=== PATIENT | male | born 1940 | race Caucasian/White ===

== ENCOUNTER 2016-10-05 07:28 | Day surgery (SDC) | payer MEDICARE, OTHER ==
[~2016-10-05] VITALS: Ht 182.9 cm; Wt 108.9 kg
[~2016-10-05 07:28] MED LIST: DULO60CA42 PO; EMPA25TA PO; INSU100I; INSU300I SQ; LISI10TA PO; METF500T PO; OMEP20CA11 PO; Sodium Chloride LOK Flush 10 mL Syringe IV PRN; TAMS0.4C98 PO; VIT1CAPS8 PO; fentaNYL-PF 50 mCg/mL 2 mL Inj IVPUSH PRN
[2016-10-05 07:46] VITALS: BP 150/74; PULSE 87; RESP 16; O2SAT 92
[2016-10-05] MEDS: 0.9% Sodium Chloride 1,000 ML IV SCH ×2 (08:24→08:58)
[2016-10-05 09:00] VITALS: BP 154/77; PULSE 72; RESP 16; O2SAT 95
[2016-10-05 09:10] VITALS: BP 151/78; PULSE 74; RESP 16; O2SAT 95
[2016-10-05 09:19] VITALS: BP 152/75; PULSE 74; RESP 16; O2SAT 94
--- NOTE | 2016-10-05 15:38 | ENDO ---
[address] [address] ENDOSCOPY PROCEDURE PATIENT: LELE MORAN : 1940 MR#: [id number] ADMIT: 10/05/2016 JOB ID: [id number] PROCEDURE: Colonoscopy. INDICATION: Patient with personal history of colon polyps. Patient's ASA classification is II. Mallampati score is II. MEDICATIONS: Versed 2 mg, fentanyl 50 mcg. INSTRUMENT USED: [id number]. PREPARATION QUALITY: Fair. PROCEDURE DETAILS: After informed consent was obtained, the patient was brought into the GI suite, where he was placed on oxygen via nasal cannula and monitored with continuous pulse oximeter, telemetry, and blood pressure monitoring. A time-out was performed. Then, he was placed in a left lateral decubitus position and medications were administered for sedation. Digital rectal exam was performed which was unremarkable. The colonoscope was then inserted into the rectum and advanced under visualization to the cecum, which was identified by the presence of the ileocecal valve and appendiceal orifice. Once cecum was reached, colonoscope was withdrawn back into the rectum. Mucosa and lumen were examined. In the rectum, retroflexion was performed. Following retroflexion, remaining air in the rectum was suctioned, and procedure was completed. FINDINGS: 1. In the ascending colon, there were two polyps that ranged in size from 6 mm to 7 mm. Both polyps were removed using a hot snare. 2. In the transverse colon, there was an approximately 6 mm polyp that was removed with a hot snare. 3. In the sigmoid colon, there was a 5 mm sessile polyp that was removed with a hot snare. 4. Scattered diverticula were seen throughout the left side of the colon. 5. Retroflexed views in the rectum revealed moderate-sized internal hemorrhoids. IMPRESSION: 1. Two ascending colon polyps. 2. Transverse colon polyp. 3. Sigmoid polyp. 4. Left-sided diverticulosis. 5. Internal hemorrhoids. RECOMMENDATIONS: 1. Avoid NSAIDs and anticoagulants for 72 hours. 2. Fiber rich diet. 3. Repeat colonoscopy in three years. 4. Follow up with Dr. Alexandria Valerio at [facility] for followup of history of pancreatic duct stricture. COMPLICATIONS: None. ESTIMATED BLOOD LOSS: Zero.
--- NOTE | 2016-10-08 16:14 | PATH ---
SURGICAL PATHOLOGY Attending Physician:Balwinder Reed CASE STATUS: Signed Out PATIENT NAME: LELE MORAN PID: [id number] : 1940 DATE COLLECTED:10/05/2016 17:36 SPECIMEN: 1: Colon, Biopsy 2: Colon, Biopsy 3: Colon, Biopsy CLINICAL HISTORY: 1). ASCENDING COLON POLYP X2 2). TRANSVERSE COLON POLYP 3). SIGMOID POLYP FINAL DIAGNOSIS: 1.ASCENDING COLON, POLYP, BIOPSIES: TUBULAR ADENOMAS. 2.TRANSVERSE COLON, POLYP, BIOPSY: TUBULAR ADENOMA. 3.SIGMOID COLON, POLYP, BIOPSY: TUBULAR ADENOMA. ICD10 CODE D12.2 D12.3 D12.5 GROSS DESCRIPTION: Received are three formalin-filled containers, each labeled with the patient' s name. 1. Received in formalin, labeled with the patient' s name and "1. Ascending colon polyps", are four fragments of brown, soft tissue ranging in size from 0.2 x 0.2 x 0.2 cm to 0.3 x 0.2 x 0.2 cm. All fragments are totally submitted in cassette 1A. 2. Received in formalin, labeled with the patient' s name and "2. Transverse colon polyp", are four fragments of brown, soft tissue ranging in size from 0.1 x 0.1 x 0.1 cm to 0.3 x 0.2 x 0.1 cm. All fragments are totally submitted in cassette 2A. 3. Received in formalin, labeled with the patient' s name and "3. Sigmoid polyp", are two fragments of brown, soft tissue ranging in size from 0.1 x 0.1 x 0.1 cm to 0.3 x 0.2 x 0.2 cm. All fragments are totally submitted in cassette 3A. ([id number]) MICRO DESCRIPTION: See diagnosis. ICD-9 CODES: CPT CODES: 1: 36380 2: 93159 3: 37524 Electronically Signed Out Aubree Cruz MD [facility] [address], [place] [address] Technical component performed at [facility], [address], [place], [address]
== END 2016-10-05 23:59 | disposition home or self-care (01) ==
LOC: END 07:28
PROVIDERS: ATTEND Internal Medicine Gastroenterology
DX: Z12.11 Encounter for screening for malignant neoplasm of colon (principal); Z86.010 Personal history of colon polyps; D12.2 Benign neoplasm of ascending colon; D12.3 Benign neoplasm of transverse colon; D12.5 Benign neoplasm of sigmoid colon; K64.8 Other hemorrhoids; K57.30 Diverticulosis of large intestine without perforation or abscess without bleeding; I10 Essential (primary) hypertension; E78.5 Hyperlipidemia, unspecified; I71.4 Abdominal aortic aneurysm, without rupture; K22.70 Barrett's esophagus without dysplasia; E11.40 Type 2 diabetes mellitus with diabetic neuropathy, unspecified; F41.9 Anxiety disorder, unspecified; F32.9 Major depressive disorder, single episode, unspecified; Z79.4 Long term (current) use of insulin; Z85.46 Personal history of malignant neoplasm of prostate
CPT/HCPCS: 45385; 99153; G0500; J7030